=== PATIENT | male | born 2005 | race Caucasian/White ===

== ENCOUNTER 2024-02-24 13:41 | Emergency (ER) | payer BC, OTHER ==
[~2024-02-24] VITALS: Ht 185.4 cm; Wt 86.6 kg
[2024-02-24 13:54] VITALS: BP 109/83; PULSE 116; RESP 18; O2SAT 100
[2024-02-24 14:16] LABS: Basophils # (auto) 0.1 10 ^3/uL (0-0.2); Basophils % (auto) 1.1 % (0.0-2.0); Eosinophils # (auto) 0 10 ^3/uL (0-0.8); Eosinophils % (auto) 0.7 % (0.0-7.0); Hematocrit 44.3 % (41.0-53.0); Hemoglobin 15.4 g/dL (13.5-17.5); Lymphocytes # (auto) 1.2 10 ^3/uL (0.4-5.4); Lymphocytes % (auto) 24.6 % (10.0-50.0); Mean Corpuscular Hemoglobin 30.1 pg (28.0-32.0); Mean Corpuscular Hgb Conc. 34.8 g/dL (32.0-36.0); Mean Corpuscular Volume 86.3 fL (80.0-100.0); Monocytes # (auto) 0.3 10 ^3/uL (0-1.3); Monocytes % (auto) 6.6 % (0.0-12.0); Neutrophils # (auto) 3.4 10 ^3/uL (1.6-8.6); Nucleated Red Blood Cells % 0.1 %; Platelet Count (auto) 221 10^3/uL (140-450); Red Blood Cells 5.14 10^6/uL (4.5-5.90); Red Cell Distribution Width 13.6 % (11.8-14.3)
[2024-02-24 14:18] LABS: Chloride 109 mmol/L (98-107); Potassium 3.7 mmol/L (3.5-5.1); Sodium 140 mmol/L (136-145)
[2024-02-24 14:20] LABS: Calcium 9.4 mg/dL (8.7-10.4)
[2024-02-24 14:23] LABS: Anion Gap 8 (5-15); Carbon Dioxide 23 mmol/L (20-31)
[2024-02-24 14:24] LABS: BUN/Creatinine Ratio 6.3 (10.0-20.0); Blood Urea Nitrogen 6 mg/dL (9-23); Glucose 86 mg/dL (74-106)
[2024-02-24] MEDS: levETIRAcetam 1000 mg/100ml 100 ML IV ONE (14:47)
== END 2024-02-24 15:10 | disposition home or self-care (01) ==
LOC: ER 13:41 → EDBD 13:41 → ER 15:10
DX: G40.909 Epilepsy, unspecified, not intractable, without status epilepticus (principal)
CPT/HCPCS: 36415; 70450; 80048; 85025; 96365; 99285; J1953